=== PATIENT | female | born 1985 | race Caucasian/White ===

== ENCOUNTER → 2023-03-23 | Day surgery (SDC) | payer BC, OTHER | LOC: ENDO/OP 14:04 | PROVIDERS: ATTEND Surgery | DX: K44.9 Diaphragmatic hernia without obstruction or gangrene (principal) | CPT/HCPCS: 91010 ==

== ENCOUNTER 2023-04-23 14:26 | Outpatient (CLI) | payer BC ==
[2023-04-23 14:59] LABS: #Basophils 0.1 10x3/uL (0.0-0.2); #Eosinphils 0.1 10x3/uL (0.0-0.5); #Monocytes 0.8 10x3/uL (0.0-1.1); #Neutrophils 5.2 10x3/uL (1.5-8.4); %Basophils 0.5 % (0.0-2.0); %Eosinophils 1.5 % (0.0-6.0); %Lymphocytes 34.8 % (18.0-47.0); %Monocytes 8.3 % (0.0-10.0); %Neutrophils 54.5 % (40.0-75.0); Hematocrit 40.5 % (34.9-44.5); Hemoglobin 13.5 g/dL (12.0-15.5); Mean Corpuscular HGB CONC 33.3 g/dL (32.0-36.0); Mean Corpuscular Hemoglobin 29.6 pg (27.0-33.0); Mean Corpuscular Volume 88.8 fl (81.6-98.3); Mean Platelet Volume 10.1 fl (7.4-10.4); Platelet Count 322 10x3/uL (150-450); RBC Distribution Width 12.5 % (11.5-14.5); Red Blood Cell (RBC) Count 4.56 10x6/uL (3.90-5.03); White Blood Cell (WBC) Count 9.5 10x3/uL (3.5-10.5)
[2023-04-23 15:18] LABS: Anion Gap 15 mmol/L (10-20); BUN (Urea Nitrogen) 13 mg/dL (7.0-18.7); Calc. Creatinine Clearance 0 mL/min (70-130); Calcium 8.9 mg/dL (7.8-10.44); Carbon Dioxide 20 mmol/L (22-29); Chloride 109 mmol/L (98-107); Estimated GFR 82; Glucose 96 mg/dL (70-105); Potassium 4.2 mmol/L (3.5-5.1); Sodium 140 mmol/L (136-145)
== END 2023-04-23 14:27 | disposition home or self-care (01) ==
LOC: LABBT 14:26
PROVIDERS: ATTEND Surgery
DX: Z01.812 Encounter for preprocedural laboratory examination (principal); K44.9 Diaphragmatic hernia without obstruction or gangrene
CPT/HCPCS: 80048; 85025

== ENCOUNTER → 2023-04-28 | Day surgery (SDC) | payer BC, OTHER ==
[2023-04-23 14:49] VITALS: BMI 34.4
[~2023-04-28] MED LIST: Bupivacaine 0.25% HCL 30 ML VIAL ONE; CEFAZOLIN 2 GM VIAL ONE; Dexamethasone 20 MG/5 ML VIAL ONE; EPINEPHrine 1 MG/ML AMP ONE; HYDROcodone/Acetaminophen 5/325 mg Tablet ONE; Lidocaine 1% MPF 2 ML VIAL ONE; Lidocaine 1% PF 5 ML VIAL ONE; Meperidine HCl/PF 25 MG/ML VIAL ONE; Ondansetron PF 4 MG/2 ML Vial ONE; PROPOFOL 200 MG/20 ML VIAL ONE; Rocuronium Bromide 10 MG/ML (10ML VIAL) ONE; Sodium Chloride 0.9% 100 ML ONE; fentaNYL 50 mcg/mL 1 mL Vial ONE; fentaNYL PF 100 MCG/2 ML SYRINGE ONE
== END ==
LOC: SDC 10:46
PROVIDERS: ATTEND Surgery
PROC: 0BUT4JZ Supplement Diaphragm with Synthetic Substitute, Percutaneous Endoscopic Approach (ICD-10-PCS; principal; 2023-04-28)
DX: K44.9 Diaphragmatic hernia without obstruction or gangrene (principal); K21.9 Gastro-esophageal reflux disease without esophagitis; Z98.890 Other specified postprocedural states; Z79.899 Other long term (current) drug therapy; Z88.6 Allergy status to analgesic agent
CPT/HCPCS: J0171; J1100; J2175; J2405; J2704; J3010; J3490; S0020